=== PATIENT | male | born 1980 | race Caucasian/White ===

== ENCOUNTER 2018-02-02 08:52 | Emergency (ER) | payer OTHER ==
[~2018-02-02] VITALS: Ht 175.3 cm; Wt 116.1 kg
[~2018-02-02 08:52] MED LIST: DEXM20CA PO
[2018-02-02 08:54] VITALS: TEMP 36.8; Ht 175.3 cm; Wt 116.1 kg
[2018-02-02] MEDS ORDERED: IBUPROFEN 800 MG TAB PO STA (09:19)
--- NOTE | 2018-02-02 09:50 | DIAGNOSTIC IMAGING REPORT ---
L KNEE 3 VIEWS CLINICAL HISTORY: left knee pain, medial pain COMPARISON: None. DISCUSSION: The bones and joint spaces appear intact. There is no evidence of fracture, dislocation or bony disease. There is no evidence for soft tissue swelling. IMPRESSION: Negative study. The above report was generated using voice recognition software. It may contain grammatical, syntax or spelling errors. Electronically signed by: Rodrigue Mosley M.D. 02/02/2018 9:49 AM Dictated Date/Time: 02/02/2018 9:48 AM
--- NOTE | 2018-02-02 09:56 | EMERGENCY ROOM VISIT NOTE ---
ED Visit Note First contact with patient: 09:06 CHIEF COMPLAINT: Medial left knee pain HISTORY OF PRESENT ILLNESS: This 37-year-old male patient presents to the emergency department, ambulatory, approximately 1 day after sustaining an injury to the medial left knee after a fall. The patient was playing ice hockey , when he collided with another player. He states he fell, but not after experiencing a valgus force to the left knee. He is now complaining of medial knee pain. He states the pain became worse this morning upon awakening. He did take 1 dose of Tylenol last night, but has taken no pain medications this morning. The patient denies any other injuries besides their knee. The patient denies swelling or bruising. There is pain on the medial aspect and with weight-bearing. They rate the pain as sharp and 7/10. The patient states they are able to walk on it. No numbness or tingling. No previous injuries to this knee. No ankle, foot or hip pain. REVIEW OF SYSTEMS: A 6 system review of systems was completed with positives and pertinent negatives listed in the HPI. ALLERGIES: None MEDICATIONS: None PMH: None SOCIAL HISTORY: The patient lives locally with family. He denies drug, alcohol , tobacco use. PHYSICAL EXAM: Vital Signs: Reviewed Nurse's notes, vital signs stable. GENERAL : This is a 37-year-old obese white male, no acute distress, but appears in pain , well-developed, well-nourished. MENTAL STATUS: Alert, oriented to person place and time, and cooperative. MUSCULOSKELETAL: The left knee is not swollen. There is no ecchymosis. There is no joint effusion present. The patient is tender on the medial aspect. There is no joint line tenderness. The patella does appropriately subluxate. Range of motion is full, however painful. Strength of the quads and hamstrings is 5/5. David's is negative. Seb's and Anterior Drawer tests are negative. There is mild discomfort, but no laxity with varus and valgus stressing. The foot and toes are warm and well-perfused. Dorsalis pedis pulse 2+. Sensation to pain and light touch is intact. Capillary refill less than 2 seconds. RADIOLOGY: L KNEE 3 VIEWS CLINICAL HISTORY: left knee pain, medial pain COMPARISON: None. DISCUSSION: The bones and joint spaces appear intact. There is no evidence of fracture, dislocation or bony disease. There is no evidence for soft tissue swelling. IMPRESSION: Negative study. The above report was generated using voice recognition software. It may contain grammatical, syntax or spelling errors. Electronically signed by: Rodrigue Mosley M.D. 02/02/2018 9:49 AM Dictated Date/Time: 02/02/2018 9:48 AM EMERGENCY DEPARTMENT COURSE: I examined the patient. X-rays of the left knee were reviewed by myself and read by radiology and reveal no acute bony abnormalities. The patient was offered a knee immobilizer, but declines. He states he has a brace at home he will wear. The patient was instructed on the use of crutches. Discharge instructions reviewed. The patient was discharged home in good condition. I attest that I have personally reviewed the patient's current medication list. Blood Pressure Screening: Patient was found to have a slightly elevated blood pressure due to circumstances. I do not believe that the patient requires hypertension monitoring. Etiologies such as soft tissue injury, fracture, dislocation, neurovascular compromise, compartment syndrome, as well as others were entertained. DIAGNOSIS: Left knee sprain Current/Historical Medications No Active Prescriptions or Reported Meds Allergies Coded Allergies: No Known Allergies (Unverified , 02/02/18) Vital Signs Date Time Temp Pulse Resp B/P (MAP) Pulse Ox O2 Delivery O2 Flow Rate FiO2 02/02/18 10:16 71 18 144/80 95 02/02/18 08:54 36.8 77 18 151/99 99 Room Air Medications Administered Medications (Trade) Dose Ordered Sig/Kelli Route Start Time Stop Time Status Last Admin Dose Admin Ibuprofen (Motrin Tab) 800 mg NOW STAT PO 02/02/18 09:19 02/02/18 09:21 DC 02/02/18 09:46 800 MG Departure Information Impression Primary Impression: Sprain of knee Dispostion Home / Self-Care Condition GOOD Prescriptions No Active Prescriptions or Reported Meds Referrals No Doctor, Assigned (PCP) Smooth Boss MD Patient Instructions ED Sprain Knee Collateral Ligaments, My [facility] Additional Instructions You have been treated in the Emergency Department for Knee Pain. For pain control, you can use the following [id number] medicines (if >12 yo): Ibuprofen(Motrin, Advil) may be used for fever or pain. Use 600mg every six hours as needed. Take with food. Avoid using more than 2400mg in a 24 hour period. Do not use 2400mg per day for more than three consecutive days without physician direction. Prolonged inappropriate use can lead to stomach upset or ulcers. (AND/OR) Acetaminophen(Tylenol) may be used for fever or pain. Use 1000mg every six hours as needed. Avoid using more than 3000mg in a 24 hour period. If this is a recent injury (<24 hrs), ice can be applied to the area of pain for the first 3 days to help decrease pain and inflammation. Ice massages can be performed by freezing water in a paper cup, peeling back the cup to expose the ice and then massaging over the affected area. You have been provided the number for an Orthopaedic Surgeon. You should call this number if no improvement in 1 week to establish a follow-up visit from today's Emergency Department visit. Keep the knee brace you have in place until pain improves. Use the crutches you have been provided to keep ALL weight off of the knee until weight bearing is tolerable. Return to the Emergency Department if your current symptoms worsen despite treatment course outlined above. Problem Qualifiers Primary Impression: Sprain of knee Encounter type: initial encounter Involved ligament of knee: medial collateral ligament Laterality: left Qualified Codes: S83.412A - Sprain of medial collateral ligament of left knee, initial encounter
[2018-02-02 10:16] VITALS: BP 144/80; PULSE 71; O2SAT 95
== END 2018-02-02 10:17 | disposition home or self-care (01) ==
LOC: C.EDB 08:53
DX: S83.412A Sprain of medial collateral ligament of left knee, initial encounter (principal); Y93.22 Activity, ice hockey; Y92.330 Ice skating rink (indoor) (outdoor) as the place of occurrence of the external cause